=== PATIENT | male | born 1960 | race Caucasian/White ===

== ENCOUNTER 2023-12-06 23:03 | Emergency (ER) | payer OTHER, SELFPAY ==
[2023-12-06 23:03] VITALS: BP 153/81; PULSE 110; RESP 20; TEMP 36.4; O2SAT 98; BMI 27.3
--- NOTE | 2023-12-06 23:05 | CT_ITS ---
PROCEDURE INFORMATION: Exam: CTA Chest With Contrast Exam date and time: 12/06/2023 11:48 PM Age: 63 years old Clinical indication: Cough; Additional info: Chronic cough, intermittent hemoptysis TECHNIQUE: Imaging protocol: Computed tomographic angiography of the chest with contrast. Exam focused on the arteries. 3D rendering (Not supervised by radiologist): MIP and/or 3D reconstructed images were created by the technologist. Total images: 909 Radiation optimization: All CT scans at this facility use at least one of these dose optimization techniques: automated exposure control; mA and/or kV adjustment per patient size (includes targeted exams where dose is matched to clinical indication); or iterative reconstruction. Contrast material: ISOVUE; Contrast volume: 70 ml; Contrast route: INTRAVENOUS (IV); COMPARISON: No relevant prior studies available. FINDINGS: Pulmonary arteries: Adequate contrast opacification of the pulmonary arteries. No acute pulmonary emboli. Aorta: Moderately atherosclerotic thoracic aorta without aneurysm or dissection. Lungs: The trachea and main bronchi are patent. Diffuse bronchial wall thickening. Large thick-walled irregular cavitation near completely replacing the normal parenchyma of the right upper lobe. Multiple clustered thick-walled irregular cavitary lesions throughout the right lower lobe, greatest in the superior segment. Additional thick-walled irregular cavitary lesions in the right middle lobe. Mild diffuse tree-in-bud opacification throughout the left upper lobe with small volume nodular consolidations in the inferior lingula. Underlying mild centrilobular emphysema. Pleural spaces: Unremarkable. No pneumothorax. No pleural effusion. Heart: Normal heart size. No pericardial effusion. Coronary arteries: Moderate to severe coronary artery calcifications. Lymph nodes: Mild mediastinal and right hilar lymphadenopathy. Scattered partially calcified mediastinal and hilar lymph nodes. Gallbladder and biliary ducts: Cholelithiasis without secondary signs of acute cholecystitis Spleen: Mild splenomegaly incompletely included. Kidneys: Small upper pole right renal cysts. Stomach: Moderate gastric distension with recently ingested content. Bones/joints: Unremarkable. No acute fracture. Soft tissues: Unremarkable. IMPRESSION: 1. Extensive thick-walled irregular cavitary lesions throughout the right lung, including near complete replacement of the right upper lobe by extensive cavitary process. Differential includes: Multifocal cavitary pneumonia, multifocal cavitary neoplasm, lung abscesses, tuberculosis, and less likely septic emboli 2. Mediastinal and hilar lymphadenopathy secondary to above. 3. Diffuse distal small airway inflammation including small volume nodular consolidations in the left upper lobe. 4. Mild splenomegaly 5. Cholelithiasis 6. Additional chronic and incidental findings. COMMENTS: 1. Consistent with the [employer]'s Incidental Findings Committee white paper (J Am Jodi Radiol 2018): Any incidental renal lesion less than 1 cm or classified as too small to characterize, or any incidental cystic renal lesion characterized as simple-appearing, is likely benign. No follow-up imaging is recommended for these lesions per consensus recommendations based on imaging criteria. 2. The presence of pulmonary emphysema on CT is an independent risk factor for lung cancer. In the absence of a history or active diagnosis of lung cancer, it is recommended that this patient with emphysema be evaluated for enrollment in a low dose CT lung cancer screening program.
--- NOTE | 2023-12-06 23:09 | HMH.EDGENADL ---
Discharge Plan Disposition Patient Disposition: Home, Self-Care Prescriptions Prescriptions: No Action montelukast 10 mg tablet 10 mg PO DAILY Patient Comments: TAKE 1 TABLET BY MOUTH EVERY DAY albuterol sulfate 90 mcg/actuation HFA aerosol inhaler 1 puff INHALATION Q6HP PRN (Reason: Shortness Of Breath Or Wheezing) Patient Comments: INHALE 1 PUFF BY MOUTH EVERY 6 HOURS NEEDED FOR SHORTNESS OF BREATH Referrals Follow up/Referrals: Provider,MD Tim [Referring] - See instructions Janett Grover MD [Physician] - See instructions Activity Restrictions/Add. Instructions Additional Instructions/Restrictions: Please call Dr. Grover's clinic on Friday to be seen as soon as possible. Please follow-up with your primary care provider. Please return to the emergency department if you develop any new or worsening symptoms or become concerned for your health. Clinical Impressions Clinical Impression: Cavitary lesion of lung Print Language Print Language: Thai Discharge ED Provider: Terrance Segura General Adult HPI General Chief complaint: Shortness of Breath/Dyspnea Stated complaint: SOA Time Seen by Provider: 12/06/23 23:05 History of Present Illness HPI narrative: 63-year-old male presents for 1 year of chronic productive cough with intermittent emesis. He reports that he was seen and admitted at [facility] about a month ago but ultimately left A. He is unsure whether or not he was told he has TB, but he remembers that he was told that it was not contagious. He reports that he is trying to get it sorted out with his primary doctor, but he is waiting to see pulmonology. He reports that symptoms have been stable and unchanged. He reports that he was on multiple antibiotics for about a month including Levaquin and another antibiotic. He finished his antibiotics several weeks ago. He admits to drinking some beers this evening. Denies fever or other symptoms. Related Data Home Medications ?Medication ?Instructions ?Recorded ?Confirmed albuterol sulfate 90 mcg/actuation 1 puff inhalation Q6HP PRN 12/07/23 12/07/23 aerosol inhaler Shortness Of Breath Or Wheezing montelukast 10 mg tablet 10 mg PO DAILY 12/07/23 12/07/23 Allergies Allergy/AdvReac Type Severity Reaction Status Date / Time No Known Allergies Allergy Verified 12/06/23 23:14 [facility] Disclaimer: The information contained in this section may have been updated after the patient was seen, as this information can be updated by other users. Social History (Updated 12/07/23 @ 02:01 by Hunter Katz RN) Smoking Status: Current every day smoker tobacco type: cigarettes alcohol intake: current substance use type: former substance user current occupational status: employed Travel in the last 8 weeks: None ROS Obtained: Yes All systems reviewed & no additional complaints except as documented Physical Exam General General appearance: alert and in no apparent distress Head Head exam: atraumatic and normocephalic Eye Eye exam: Present normal appearance, PERRL and EOMI ENT ENT exam: Present normal oropharynx and normal external ear exam Neck Neck exam: Present normal inspection and full ROM Chest Chest inspection: Present normal inspection and symmetric chest wall rise; Absent tenderness Respiratory Respiratory exam: Present other (Some rhonchi and crackles on the right side.) Cardiovascular Cardiovascular exam: Present regular rate and normal rhythm Abdominal Exam Abdominal exam: Present soft; Absent distention, tenderness or guarding Extremities Exam Extremities exam: Present normal inspection; Absent edema or joint swelling Back Exam Back exam: Present normal inspection; Absent tenderness Neurological Exam Neurological exam: Present alert and oriented X3; Absent motor sensory deficit Psychiatric Psychiatric exam: Present normal affect and normal mood Skin Skin exam: Present warm, dry and normal color Lymphatic Lymphatic Findings: no adenopathy Medical Decision Making Medical Records Medical records reviewed: Yes I reviewed the patient's medical records. Screening: Per USPSTF and CDC recommendations, given the prevalence of disease in our region, it is our hospital?s policy to screen for HIV and viral Hepatitis for all patients aged 18 and over and those with ongoing risk factors. Roman Inquiry Pt receiving controlled substance: No Roman was queried for this patient: No Vital Signs: 12/06/23 23:03 12/06/23 23:30 12/07/23 00:00 Temperature 97.6 F Temperature Source Oral Pulse Rate 108 H 104 H Pulse Rate [Right] 110 H Respiratory Rate 20 Blood Pressure 153/82 H 133/62 Blood Pressure [Right Arm] 153/81 H Blood Pressure Mean [Right Arm] 105 02 Sat by Pulse Oximetry 98 95 94 L Oxygen Delivery Method Room Air 12/07/23 00:30 Temperature Temperature Source Pulse Rate 103 H Pulse Rate [Right] Respiratory Rate Blood Pressure 159/93 H Blood Pressure [Right Arm] Blood Pressure Mean [Right Arm] 02 Sat by Pulse Oximetry 96 Oxygen Delivery Method Lab Data Lab results reviewed: Yes I reviewed the patient's lab results. Lab Results 12/06/23 23:09: WBC 8.2, RBC 4.13 L, Hgb 10.8 L, Hct 34.3 L, MCV 83.1, MCH 26.2 L, MCHC 31.6 L, RDW 14.9, Plt Count 289, MPV 7.8, Neut % (Auto) 75.0, Lymph % (Auto) 15.6, [place] % (Auto) 7.5, Eos % (Auto) 1.1, Baso % (Auto) 0.9, Neut # (Auto) 6.2, Lymph # (Auto) 1.3, [place] # (Auto) 0.6, Eos # (Auto) 0.1, Baso # (Auto) 0.1, Sodium 137, Potassium 3.3 L, Chloride 110 H, Carbon Dioxide 18 L, Anion Gap 12.3, BUN 16, Creatinine 0.70, Estimated Creat Clear 93, Estimated GFR 114, Est GFR ( Amer) 138, Glucose 108 H, Calcium 9.9, Total Bilirubin 0.6, AST 24, ALT 17, Alkaline Phosphatase 82, Total Protein 7.7, Albumin 3.8, Globulin 3.9 H, Albumin/Globulin Ratio 1.0 L, SARS-CoV-2 (PCR) Not detected, HIV 1&2 Antibody Rapid Nonreactive, Influenza A Untype (PCR) Not detected, Influenza Type B (PCR) Not detected 12/06/23 23:09 12/06/23 23:09 Orders (Tests/Meds): ED MEDICATIONS Generic Name Dose Route Start Last Admin Trade Name Freq PRN Reason Stop Dose Admin Sodium Chloride 3 ml 12/06/23 23:05 Sodium Chloride 3% 15ml Neb IH 01/05/24 23:04 ONCE PRN INDUCE SPUTUM COLLECTION Sodium Chloride 10 ml 12/06/23 23:52 12/06/23 23:52 Sodium Chloride 0.9% 10ml Syr (Rad Only) IV 01/05/24 23:51 10 ml NEEDED PRN Administration Maintain IV Site Discontinued Medications Generic Name Dose Route Start Last Admin Trade Name Freq PRN Reason Stop Dose Admin Iopamidol 70 ml 12/06/23 23:52 12/06/23 23:52 Iopamidol-370 (76%);100ml Bottle IV 12/06/23 23:53 70 ml ONCE ONE Administration Sodium Chloride 50 ml 12/06/23 23:52 12/06/23 23:52 0.9 % Sodium Chloride 50 Ml Vial IV 12/06/23 23:53 50 ml ONCE ONE Administration ORDERS Category Date Time Status CT angio chest PE protocol Stat Cat Scan 12/06/23 23:05 Completed CBC w/Auto Diff [Complete Blood Count Auto Diff] Stat Lab 12/06/23 23:09 Completed CMP [Comprehensive Metabolic Panel] Stat Lab 12/06/23 23:09 Completed HIV (1&2) Antibody Rapid Stat Lab 12/06/23 23:09 Completed Hep C Ab with Reflex to RNA Stat Lab 12/06/23 23:09 Received QuantiFERON Client Incubated Stat Lab 12/06/23 23:32 Received Rapid PCR Covid and Flu A/B Stat Lab 12/06/23 23:09 Completed Acid Fast Smear+Culture W/Rflx Routine Micro 12/06/23 23:23 Received Sputum Culture & Gram Stain Stat Micro 12/06/23 23:23 Received Medical Decision Narrative: 63-year-old male with 1 year of chronic productive cough, intermittently bloody, presents for persistent symptoms. See HPI for details. No new changes, patient is just frustrated about not being able to get into see pulmonology. History was obtained via interactive discussion with patient. We called but were unsuccessful in obtaining records from [facility]. On arrival, patient is [afebrile, hemodynamically stable, satting appropriately, alert, oriented x4, GCS 15], moving all extremities spontaneously. Full physical exam performed and significant for well-appearing gentleman with some asymmetric upper lobe breath sounds. Differential includes but is not limited to pneumonia, necrotizing pneumonia, PE, TB, fungal infection, malignancy, interstitial lung disease. Workup initiated including CBC CMP sputum culture and Gram stain, acid-fast stain, CT chest with contrast. On re-evaluation, patient [remains afebrile, HD stable.] Laboratory workup independently interpreted by me and significant for no significant laboratory abnormalities, specifically no leukocytosis, minimal hypokalemia. Imaging independently interpreted by me and significant for multifocal cavitary lung lesions with associated lymphadenopathy.. See radiology read for full review of final results. Extensive discussion was had with patient regarding his presentation. Given the duration of symptoms, lack of fever, no white count, no recent change in sputum quality or quantity, it is not clear that the patient has an active infection. Given normal oxygenation and vital signs, patient would not require admission from a respiratory failure standpoint. Patient has antibiotics at home including Levaquin that he stopped taking on his own several weeks ago. I have really considered admitting the patient for expedited workup. But given hemodynamic stability and unchanged symptoms over the last several months, I do not think that he necessarily requires admission at this point. I discussed this with patient and he would like to follow-up in clinic with our sales operations assistant as soon as possible. Patient was given instructions regarding return precautions. Talked with him about restarting his antibiotics at home. Patient was discharged in stable condition with referral to Dr. Grover. Procedures Risk/Benefits of Procedure(s) Were Explained: Yes Critical Care Critical Care Time Critical Care Time: No
--- NOTE | 2023-12-06 23:10 | PC.NURSE ---
Called [facility] to get patient's medical records from last hospital stay
[2023-12-06 23:19] LABS: Coronavirus 19, PCR Not Detected (NotDetected); Influenza A, PCR Not Detected (NotDetected); Influenza B, PCR Not Detected (NotDetected)
[2023-12-06 23:25] LABS: Basophils # 0.1 K/mm3 (0-0.2); Basophils % 0.9 % (0.1-2.0); Eosinophils # 0.1 K/mm3 (0.0-0.4); Eosinophils % 1.1 % (0.1-12.0); Hematocrit 34.3 % (42.0-52.0); Hemoglobin 10.8 g/dL (14.1-18.0); Lymphocytes # 1.3 K/mm3 (0.7-4.5); Lymphocytes % 15.6 % (10-50); Mean Corpuscular HGB Conc 31.6 g/dL (31.8-35.4); Mean Corpuscular Hemoglobin 26.2 pg (27.0-31.2); Mean Corpuscular Volume 83.1 fl (80-94); Mean Platelet Volume 7.8 fl (7.4-10.4); Monocytes # 0.6 K/mm3 (0.1-1.0); Monocytes % 7.5 % (1.7-9.3); Neutrophils # 6.2 K/mm3 (1.8-7.8); Platelet Count 289 K/mm3 (142-424); Red Blood Count 4.13 M/mm3 (4.60-6.20); Red Cell Distribution Width 14.9 % (11.5-17.5); White Blood Count 8.2 K/mm3 (4.8-10.8)
[2023-12-06 23:27] LABS: Albumin Level 3.8 g/dl (3.5-5.0); Chloride 110 mmol/L (98-107); Sodium 137 mmol/L (136-145)
[2023-12-06 23:28] LABS: Potassium 3.3 mmoL/L (3.5-5.1)
[2023-12-06 23:30] VITALS: BP 153/82; PULSE 108; O2SAT 95
[2023-12-06 23:30] LABS: Alanine Aminotransferase 17 U/L (12-78); Alkaline Phosphatase 82 U/L (38-126); Anion Gap 12.3 mEq/L (5-15); Aspartate Amino Transferase 24 U/L (17-59); Bilirubin,Total 0.6 mg/dl (0.2-1.3); Blood Urea Nitrogen 16 mg/dl (9-20); Carbon Dioxide 18 mmol/L (22.0-30.0); Creatinine Clearance Estimated 93 mL/min (50-200); Estimated Glomerular Filt Rate 114 ml/min (>60); GFR (African American) 138 ML/MIN (>60); Globulin 3.9 g/dL (1.3-3.2); Total Protein,Serum 7.7 g/dl (6.3-8.2)
[2023-12-06 23:31] LABS: Calcium 9.9 mg/dl (8.4-10.2); Glucose 108 mg/dl (74-100)
--- NOTE | 2023-12-06 23:42 | PC.NURSE ---
bloodwork drawn from 18LAC placed by EMS
--- NOTE | 2023-12-06 23:43 | PC.NURSE ---
pt just went to CT scan
[2023-12-06] MEDS: IOPAMIDOL-370 (76%);100ML BOTTLE 70 ML IV (23:52)
[2023-12-06] MEDS: SODIUM CHLORIDE 0.9% 10ML SYR (RAD ONLY) 10 ML IV (23:52)
[2023-12-06] MEDS: 0.9 % SODIUM CHLORIDE 50 ML VIAL IV (23:52)
[2023-12-06 23:57] LABS: HIV (1&2) Antibody Rapid NONREACTIVE (NONREACTIVE)
[2023-12-07] VITALS: BP 133/62; PULSE 104; O2SAT 94
[2023-12-07 00:30] VITALS: BP 159/93; PULSE 103; O2SAT 96
[2023-12-07 02:10] VITALS: BP 117/52; PULSE 93; RESP 20; TEMP 36.8; O2SAT 97
[2023-12-08 14:13] LABS: HCV Ab Non Reactive (Non Reactive)
[2023-12-09 21:11] LABS: QuantiFERON-TB Gold Plus Negative (Negative)
== END 2023-12-07 02:14 | disposition home or self-care (01) ==
PROVIDERS: Emergency Provider Emergency Medicine; PCP Family Medicine
DX: J98.4 Other disorders of lung (principal); R59.0 Localized enlarged lymph nodes; F17.210 Nicotine dependence, cigarettes, uncomplicated
CPT/HCPCS: 71275; 80053; 85025; 86480; 86803; 87070; 87116; 87186; 87205; 87206; 87389; 87636; 99284; Q9967